=== PATIENT | female | born 1995 ===

== ENCOUNTER 2019-04-01 01:52 | Emergency (ER) | payer OTHER ==
--- OUTSIDE RECORDS SUMMARY | 2019-04-01 02:02 | XMS REPORT | Continuity of Care Document ---
:1995 External Reference #:[id number] Author Name Bartolo Conley DO Address [address] [place] [address] Care Team Providers Name Role Phone Dakota Cerda MD - Family Medicine Care Team Information Load Out Person Problems Description No Information Available Social History Type Date Description Comments Sex Unknown Tobacco Use Start: Unknown Patient has never smoked Smoking Status Reviewed: 01/27/19 Patient has never smoked Allergies, Adverse Reactions, Alerts Description No Known Drug Allergies Medications Active Medications SIG Qnty Indications Ordering Provider Date Nexium 1 by mouth every 30caps Dakota Cerda MD 40mg Capsules DR kari Xolair 2ml monthly Unknown 150mg/ml Soln Prefill Syringe History Medications Dexilant 1 by mouth 30caps R10.12 Bartolo Conley DO 01/27/2019 - 60mg every day 03/05/2019 Capsules Ranitidine HCL 1 by mouth once 30tabs Dakota Cerda MD 12/23/2018 - 150mg a day 03/05/2019 Tablets Immunizations Description No Information Available Vital Signs Date Vital Result Comment 01/27/2019 8:49am Height 65 inches 5'5" Weight 138.00 lb BP Systolic 118 mmHg BP Diastolic 73 mmHg Heart Rate 60 /min BMI (Body Mass Index) 23.0 kg/m2 Results Test Acquired Date Facility Test Result H/L Range Note Laboratory test 02/20/2019 [facility] Surgical SEE RESULT 1 finding Pathology BELOW Laboratory test 02/20/2019 [facility] Clotest SEE RESULT 2 finding BELOW Lab Results 12/23/2018 N2N/CCD Import CRP High 0.31 mg/L 3 Sensitivity Lab Results 12/23/2018 N2N/CCD Import Troponin-I/TnI <0.05 ng/mL 0-0.64 D Dimer Quant (Fma) <100 ng/mL 0.0-400 Lab Results 12/23/2018 N2N/CCD Import TSH 2.38 mIU/L 0.50-6.00 Comprehensive Metabolic 12/23/2018 N2N/CCD Import Sodium 134 mEq/L 134- 149 Prof Potassium 4.0 mEq/L 3.6-5.5 Chloride 98 mEq/L 94-112 Carbon Dioxide 28 mEq/L 21-32 Glucose 89 mg/dL 70-105 BUN 11 mg/dL 6-26 Creatinine 0.7 mg/dL 0.6-1.4 BUN/Creat Ratio 15.7 CALC 8.0-36.0 Calcium 9.4 mg/dL 8.6-10.2 Total Protein 7.3 g/dL 6.4-8.3 Albumin 4.9 g/dL 3.8-5.5 Globulin 2.4 g/dL 2.0-4.8 A/G Ratio 2.0 CALC 0.6-2.3 Alk. Phosphatase 43 U/L 30-110 Alt (SGPT) 14 U/L 7-35 Ast (Sgot) 17 U/L 5-34 Total Bilirubin 0.4 mg/dL 0.2-1.3 GFR Non- >60 ml/min/1.73m^ GFR >60 ml/min/1.73m^ Lab Results 12/23/2018 N2N/CCD Import CK 44 U/L 26-140 WBC 8.8 10^3/uL 4.0-10.0 RBC 4.28 10^6/uL 3.93-6.00 HGB 12.9 g/dL 12.0-17.0 HCT 39 % 35-50 MCV 91.6 fL 80.0-95.0 MCH 30.1 pg 25.6-32.2 MCHC 32.9 g/dL 32.2-36.0 RDW-CV 12.8 % 11.6-14.4 PLT 214 10^3/uL 163-400 MPV 10.4 fL 9.4-12.4 Tania# 4.64 10^3/uL 1.56-6.13 Lymph# 3.25 10^3/uL 1.18-3.74 Blanco# 0.80 10^3/uL 0.24-0.82 Eos # 0.1 10^3/uL 0.0-0.5 Baso # 0.02 10^3/uL 0.01-0.08 Tania% 52.8 % 34.0-70.0 Lymph % 37.0 % 20.0-52.0 Blanco% 9.1 % 5.0-12.0 Eos% 0.7 % 0.7-7.0 Baso% 0.2 % 0.1-1.2 Lab Results 12/23/2018 N2N/CCD Import WBC 8.8 10^3/uL 4.0-10.0 RBC 4.28 10^6/uL 3.93-6.00 HGB 12.9 g/dL 12.0-17.0 HCT 39 % 35-50 MCV 91.6 fL 80.0-95.0 MCH 30.1 pg 25.6-32.2 MCHC 32.9 g/dL 32.2-36.0 RDW-CV 12.8 % 11.6-14.4 PLT 214 10^3/uL 163-400 MPV 10.4 fL 9.4-12.4 Tania# 4.64 10^3/uL 1.56-6.13 Lymph# 3.25 10^3/uL 1.18-3.74 Blanco# 0.80 10^3/uL 0.24-0.82 Eos # 0.1 10^3/uL 0.0-0.5 Baso # 0.02 10^3/uL 0.01-0.08 Tania% 52.8 % 34.0-70.0 Lymph % 37.0 % 20.0-52.0 Blanco% 9.1 % 5.0-12.0 Eos% 0.7 % 0.7-7.0 Baso% 0.2 % 0.1-1.2 1 SEE RESULT BELOW Name: REGINA MCARTHUR : [address]: Bartolo Conlye DO Acct: [id number] Unit: [id number] AGE: 24 Location: ENDO Re02/20/19 SEX: F Status: REG REF SPEC: [id number] NAYLA: 02/20/19 [facility] DR: Bartolo Conley DO REQ: [id number] RECD: 02/20/19 STATUS: MELVIN LOREDO DR: Dakota Cerda MD _ ORDERED: LEVEL 4/2 FINAL DIAGNOSIS 1. Small bowel, biopsy: -- Benign small intestinal mucosa with no significant pathologic abnormalities. -- No evidence of villous blunting or increased intraepithelial lymphocytes. 2. Esophagus, distal, biopsy: -- Benign squamous and columnar-type mucosa with chronic inflammation. -- Intestinal metaplasia is absent. -- Dysplasia is absent. -- No evidence of eosinophilic esophagitis. PRE-OPERATIVE DIAGNOSIS Rule out celiac POST-OPERATIVE DIAGNOSIS EGD: esophagus - reflux approximately 1 cm biopsy; 2 cm hiatal hernia; gastric - normal biopsy; duodenum - normal; biopsy GROSS DESCRIPTION 1. The specimen is received in formalin labeled, Biopsy Small Bowel, and consists of a 0.5 x 0.3 x 0.1 cm aggregate of perez-yellow irregular soft tissue fragments which is submitted entirely in one cassette. CONTINUED ON NEXT PAGE DEPARTMENT OF PATHOLOGY, [address] [place] [address] Ganesh Vo M.D. Director [facility] # [id number] 2. The specimen is received in formalin labeled, Biopsy Distal Esophagus, and consists of two perez irregular soft tissue fragments averaging 0.3 x 0.2 by up to 0.2 cm which are submitted entirely in one cassette. Signed by and Reported on: Dinorah Jefferson MD 02/21/19 1235 END OF REPORT DEPARTMENT OF PATHOLOGY, [address] [place] [address] Ganesh Vo M.D. Director [facility] # [id number] SEE RESULT BELOW Name: REGINA MCARTHUR : [address]: Bartolo Conley DO Acct: [id number] Unit: [id number] AGE: 24 Location: ENDO Re02/20/19 SEX: F Status: REG REF SPEC: [id number] NAYLA: 02/20/19-1110 [facility] DR: Bartolo Conley DO REQ: [id number] RECD: 02/20/196117 STATUS: MELVIN LOREDO DR: Dakota Cerda MD _ ORDERED: LEVEL 4/2 FINAL DIAGNOSIS 1. Small bowel, biopsy: -- Benign small intestinal mucosa with no significant pathologic abnormalities. -- No evidence of villous blunting or increased intraepithelial lymphocytes. 2. Esophagus, distal, biopsy: -- Benign squamous and columnar-type mucosa with chronic inflammation. -- Intestinal metaplasia is absent. -- Dysplasia is absent. -- No evidence of eosinophilic esophagitis. PRE-OPERATIVE DIAGNOSIS Rule out celiac POST-OPERATIVE DIAGNOSIS EGD: esophagus - reflux approximately 1 cm biopsy; 2 cm hiatal hernia; gastric - normal biopsy; duodenum - normal; biopsy GROSS DESCRIPTION 1. The specimen is received in formalin labeled, Biopsy Small Bowel, and consists of a 0.5 x 0.3 x 0.1 cm aggregate of perez-yellow irregular soft tissue fragments which is submitted entirely in one cassette. CONTINUED ON NEXT PAGE DEPARTMENT OF PATHOLOGY, [facility] [employer] [place] [id number] Ganesh Vo M.D. Director [facility] # [id number] 2. The specimen is received in formalin labeled, Biopsy Distal Esophagus, and consists of two perez irregular soft tissue fragments averaging 0.3 x 0.2 by up to 0.2 cm which are submitted entirely in one cassette. Signed by and Reported on: Dinorah Jefferson MD 02/21/19 1235 END OF REPORT DEPARTMENT OF PATHOLOGY, [facility] [employer] [place], [place] [address] Ganesh Vo M.D. Director [facility] # [id number] SEE RESULT BELOW Name: REGINA MCARTHUR : [address]: Bartolo Conley DO Acct: [id number] Unit: [id number] AGE: 24 Location: ENDO Re/17/19 SEX: F Status: REG REF SPEC: [id number] NAYLA: 02/20/19 [facility] DR: Bartolo Conley DO REQ: [id number] RECD: 02/20/19 STATUS: MELVIN LOREDO DR: Dakota Cerda MD _ ORDERED: LEVEL 4/2 FINAL DIAGNOSIS 1. Small bowel, biopsy: -- Benign small intestinal mucosa with no significant pathologic abnormalities. -- No evidence of villous blunting or increased intraepithelial lymphocytes. 2. Esophagus, distal, biopsy: -- Benign squamous and columnar-type mucosa with chronic inflammation. -- Intestinal metaplasia is absent. -- Dysplasia is absent. -- No evidence of eosinophilic esophagitis. PRE-OPERATIVE DIAGNOSIS Rule out celiac POST-OPERATIVE DIAGNOSIS EGD: esophagus - reflux approximately 1 cm biopsy; 2 cm hiatal hernia; gastric - normal biopsy; duodenum - normal; biopsy GROSS DESCRIPTION 1. The specimen is received in formalin labeled, Biopsy Small Bowel, and consists of a 0.5 x 0.3 x 0.1 cm aggregate of perez-yellow irregular soft tissue fragments which is submitted entirely in one cassette. CONTINUED ON NEXT PAGE DEPARTMENT OF PATHOLOGY, [address] [place] [address] Ganesh Vo M.D. Director [facility] # [id number] 2. The specimen is received in formalin labeled, Biopsy Distal Esophagus, and consists of two perez irregular soft tissue fragments averaging 0.3 x 0.2 by up to 0.2 cm which are submitted entirely in one cassette. Signed by and Reported on: Dinorah Jefferson MD 02/21/19 1235 END OF REPORT DEPARTMENT OF PATHOLOGY, [address] [place] [address] Ganesh Vo M.D. Director [facility] # [id number] 2 SEE RESULT BELOW Name: REGINA MCARTHUR : [address]: Bartolo Conley DO Acct: [id number] Unit: [id number] AGE: 24 Location: ENDO Re02/20/19 SEX: F Status: REG REF SPEC: [id number] NAYLA: 02/20/[address]: Bartolo Conley DO REQ: [id number] RECD: 02/20/19 STATUS: CHENCHO LOREDO DR: Halle Primary Care Phys,NOPCP _ SOURCE: GAS ANTRUM SPDESC: ORDERED: Clotest Procedure Result Reported Site Clotest Final 02/21/19- 0801 ML Clotest Negative * ML - Main Lab . END OF REPORT DEPARTMENT OF PATHOLOGY, [address] [place] [address] Ganesh Vo M.D. Director [facility] # [id number] 1 sst Procedures Description No Information Available Medical Devices Description No Information Available Encounters Description No Information Available Assessments Date Code Description Provider 01/27/2019 R10.12 Left upper quadrant pain Bartolo Conley DO 01/27/2019 K59.00 Constipation, unspecified Bartolo Conley DO 01/27/2019 Z87.11 Personal history of peptic ulcer disease Bartolo Conley DO Plan of Treatment Future Appointment(s):04/08/2019 2:30 pm - Bartolo Conley DO at [facility]01/27/2019 - Bartolo Conley DOR10.12 Left upper quadrant painNew Medication:Dexilant 60 mg - 1 by mouth every dayK59.00 Constipation, hcefrnxsjhpY53.11 Personal history of peptic ulcer disease Functional Status Description No Information Available Mental Status Description No Information Available Referrals Description No Information Available
--- OUTSIDE RECORDS SUMMARY | 2019-04-01 02:02 | XMS REPORT | Continuity of Care Document ---
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 Available Social History Type Date Description Comments Sex Unknown Tobacco Use Start: Unknown Patient has never smoked Smoking Status Reviewed: 01/27/19 Patient has never smoked Allergies, Adverse Reactions, Alerts Description No Known Drug Allergies Medications Active Medications SIG Qnty Indications Ordering Provider Date Dexilant 1 by mouth every 30caps R10.12 Bartolo Conley DO 01/27/[address] Ranitidine HCL 1 by mouth once a 30tabs Dakota Cerda MD 12/23/2018 150mg day Tablets Nexium 1 by mouth every 30caps Dakota Cerda MD 40mg Capsules DR day Xolair 2ml monthly Unknown 150mg/ml Soln Prefill Syringe Immunizations Description No Information Available Vital Signs Date Vital Result Comment 01/27/2019 8:49am Height 65 inches 5'5" Weight 138.00 lb BP Systolic 118 mmHg BP Diastolic 73 mmHg Heart Rate 60 /min BMI (Body Mass Index) 23.0 kg/m2 Results Test Date Facility Test Result H/L Range Note Laboratory test 02/20/2019 [facility] Surgical SEE RESULT 1 finding Pathology BELOW Laboratory test 02/20/2019 [facility] Clotest SEE RESULT 2 finding BELOW Lab [...] 4.64 10^3/uL 1.56-6.13 Lymph# 3.25 10^3/uL 1.18-3.74 [place]# 0.80 10^3/uL 0.24-0.82 Eos # 0.1 10^3/uL 0.0-0.5 Baso # 0.02 10^3/uL 0.01-0.08 Tania% 52.8 % 34.0-70.0 Lymph % 37.0 % 20.0-52.0 [place]% 9.1 % 5.0-12.0 Eos% 0.7 % 0.7-7.0 [...] 4.64 10^3/uL 1.56-6.13 Lymph# 3.25 10^3/uL 1.18-3.74 [place]# 0.80 10^3/uL 0.24-0.82 Eos # 0.1 10^3/uL 0.0-0.5 Baso # 0.02 10^3/uL 0.01-0.08 Tania% 52.8 % 34.0-70.0 Lymph % 37.0 % 20.0-52.0 [place]% 9.1 % 5.0-12.0 Eos% 0.7 % 0.7-7.0 Baso% 0.2 % 0.1-1.2 1 SEE RESULT BELOW Name: GENARO TOMLINSONREGINA : [address]: Bartolo Conley DO Acct: [id number] Unit: [id number] AGE: 24 Location: ENDO Re02/20/19 SEX: F Status: REG REF SPEC: [id number] NAYLA: 02/20/[address] [facility] [address]: Bartolo Conley DO REQ: [id number] RECD: 02/20/199825 STATUS: MELVIN LOREDO DR: Dakota Cerda MD [...] CONTINUED ON NEXT PAGE DEPARTMENT OF PATHOLOGY, [address] [place] [address] Ganesh Vo M.D. Director [facility] # [id number] 2. The specimen is received in formalin labeled, Biopsy Distal Esophagus, and consists of two perez irregular soft tissue fragments averaging 0.3 x 0.2 by up to 0.2 cm which are submitted entirely in one cassette. Signed by and Reported on: Dinorah Jefferson MD 02/21/19 0553 END OF REPORT DEPARTMENT OF PATHOLOGY, [address] [place] [address] Ganesh Vo M.D. Director [facility] # [id number] SEE RESULT BELOW Name: GENARO TOMLINSONREGINA : [address]: Bartolo Conley DO Acct: [id number] Unit: [id number] AGE: 24 Location: ENDO Re02/20/19 SEX: F Status: REG REF SPEC: [id number] NAYLA: 02/20/19-[address] [facility] [address]: Bartolo Conley DO REQ: [id number] RECD: 02/20/193700 STATUS: MELVIN LOREDO DR: Dakota Cerda MD [...] CONTINUED ON NEXT PAGE DEPARTMENT OF PATHOLOGY, [facility] [employer] [place] [address] Ganesh Vo M.D. Director [facility] # [id number] 2. The specimen is received in formalin labeled, Biopsy Distal Esophagus, and consists of two perez irregular soft tissue fragments averaging 0.3 x 0.2 by up to 0.2 cm which are submitted entirely in one cassette. Signed by and Reported on: Dinorah Jefferson MD 02/21/19 1235 END OF REPORT DEPARTMENT OF PATHOLOGY, [facility] [employer] [place], [place] [address] Ganesh Vo M.D. Director [facility] # [id number] SEE RESULT BELOW Name: REGINA MCARTHUR : [address]: Bartolo Conley DO Acct: [id number] Unit: [id number] AGE: 24 Location: ENDO Re02/20/19 SEX: F Status: REG REF SPEC: [id number] NAYLA: 02/20/[address] [facility] [address]: Bartolo Conley DO REQ: [id number] RECD: 02/20/19 STATUS: MELVIN LOREDO DR: Dakota [...] CONTINUED ON NEXT PAGE DEPARTMENT OF PATHOLOGY, [address] [place] [address] Ganesh Vo M.D. Director [facility] # [id number] 2. The specimen is received in formalin labeled, Biopsy Distal Esophagus, and consists of two perez irregular soft tissue fragments averaging 0.3 x 0.2 by up to 0.2 cm which are submitted entirely in one cassette. Signed by and Reported on: Dinorah Jefferson MD 02/21/19 1235 END OF REPORT DEPARTMENT OF PATHOLOGY, [address] [place] [address] Ganesh Vo M.D. Director [facility] # [id number] 2 SEE RESULT BELOW Name: GENARO TOMLINSONREGINA : [address]: Bartolo Conley DO Acct: [id number] Unit: [id number] AGE: 24 Location: ENDO Re02/20/19 SEX: F Status: REG REF SPEC: [id number] NAYLA: 02/20/[address] [facility] [address]: Bartolo Conley DO REQ: [id number] RECD: 02/20/19 STATUS: CHENCHO LOREDO DR: Halle Primary Care Phys,NOPCP _ SOURCE: GAS ANTRUM SPDESC: ORDERED: Clotest Procedure Result Reported Site Clotest Final 02/21/19- 01 ML Clotest Negative * ML - Main Lab . END OF REPORT DEPARTMENT OF PATHOLOGY, [address] [place] [address] Ganesh Vo M.D. Director [facility] # [id number] 3 [id number] 1 sst Procedures Description No Information Available Medical Devices Description No Information Available Encounters Description No Information Available Assessments Date Code Description Provider 01/27/2019 R10.12 Left upper quadrant pain Bartolo Conley, DO 01/27/2019 K59.00 Constipation, unspecified Bartolo Yael, DO 01/27/2019 Z87.11 Personal history of peptic ulcer disease Bartolo Conley DO Plan of Treatment 01/27/2019 - Bartolo Conley DOR10.12 Left upper quadrant painNew Medication: Dexilant 60 mg - 1 by mouth every dayK59.00 Constipation, jakpsvtugioO20.11 Personal history of peptic ulcer disease Functional Status Description No Information Available Mental Status Description No Information Available Referrals Description No Information Available
--- OUTSIDE RECORDS SUMMARY | 2019-04-01 02:02 | XMS REPORT | Continuity of Care Document ---
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 No Information Available Social History [...] Date Facility Test Result H/L Range Note Lab Results 12/23/2018 N2N/CCD Import CRP High 0.31 mg/L 1 Sensitivity Lab Results 12/23/2018 N2N/CCD Import Troponin-I/TnI [...] 4.64 10^3/uL 1.56-6.13 Lymph# 3.25 10^3/uL 1.18-3.74 Amelia# 0.80 10^3/uL 0.24-0.82 Eos # 0.1 10^3/uL 0.0-0.5 Baso # 0.02 10^3/uL 0.01-0.08 Tania% 52.8 % 34.0-70.0 Lymph % 37.0 % 20.0-52.0 Amelia% 9.1 % 5.0-12.0 Eos% 0.7 % 0.7-7.0 [...] 4.64 10^3/uL 1.56-6.13 Lymph# 3.25 10^3/uL 1.18-3.74 Amelia# 0.80 10^3/uL 0.24-0.82 Eos # 0.1 10^3/uL 0.0-0.5 Baso # 0.02 10^3/uL 0.01-0.08 Tania% 52.8 % 34.0-70.0 Lymph % 37.0 % 20.0-52.0 Amelia% 9.1 % 5.0-12.0 Eos% 0.7 % 0.7-7.0 Baso% 0.2 % 0.1-1.2 1 [id number] 1 sst Procedures Description No Information Available Medical Devices Description No Information Available Encounters Description No Information Available Assessments Date Code Description Provider 01/27/2019 R10.12 Left upper quadrant pain Bartolo Conley DO 01/27/2019 K59.00 Constipation, unspecified Bartolo Conley DO 01/27/2019 Z87.11 Personal history of peptic ulcer disease Bartolo Conley DO Plan of Treatment Future Appointment(s):02/20/2019 10:15 am - Bartolo [facility] DO at [facility]01/27/2019 - Bartolo Conley DOR10.12 Left upper quadrant painNew Medication:Dexilant 60 mg - 1 by mouth every dayK59.00 Constipation, azvlhbdxihyU53.11 Personal history of peptic ulcer disease Functional Status Description No Information Available Mental Status Description No Information Available Referrals Description No Information Available
--- NOTE | 2019-04-01 02:16 | ED ---
Abdominal Pain/Female - HPI Summary HPI Summary: Pt is a 24 y/o F presenting to the ED with a chief complaint of abdominal pain. She's been experiencing this pain since early this year, around July or August. In the summer, pt was starting to get treatment for some upper back/neck pain with opioids, which started to constipate her. She has been treated in [facility] where she is from, and when coming to [place], she saw Dr. Conley who did an endoscopy, did not find ulcers or gastritis, instead found a hiatal hernia and GERD. He recommended laxatives, which she has tried 3 of. Tonight, she presents d/t persistent pain. She has had some diarrhea, and reports frequency of urination. She denies dysuria, hematuria, or burning with urination. - History of Current Complaint Chief Complaint: EDAbdPain Stated Complaint: ABD PAIN PER PT Time Seen by Provider: 04/01/19 02:03 Hx Obtained From: Patient Onset/Duration: Gradual Onset, Lasting Days, Still Present Timing: Days Severity Initially: Moderate Severity Currently: Severe Pain Intensity: 7 Pain Scale Used: 0-10 Numeric Location: Discrete At: LUQ Radiates: No Aggravating Factor(s): Nothing Alleviating Factor(s): Nothing Associated Signs and Symptoms: Positive: Back Pain, Urinary Symptoms - frequency. no burning, dysuria, hematuria, Diarrhea. Negative: Vomiting Allergies/Adverse Reactions: Allergies Allergy/AdvReac Type Severity Reaction Status Date / Time No Known Allergies Allergy Verified 04/01/19 01:53 PMH/Surg Hx/FS Hx/Imm Hx Previously Healthy: Yes Endocrine/Hematology History: Denies: Hx Diabetes Cardiovascular History: Denies: Hx Hypertension GI History: Reports: Hx Gastroesophageal Reflux Disease Musculoskeletal History: Reports: Hx Back Problems - Surgical History Surgery Procedure, Year, and Place: appendectomy - Immunization History Date of Tetanus Vaccine: utd Date of Influenza Vaccine: unk Infectious Disease History: No Infectious Disease History: Denies: Traveled Outside the [place] in Last 30 Days - Family History Known Family History: Negative: Diabetes - Social History Alcohol Use: Occasionally Hx Substance Use: No Substance Use Type: Reports: None Hx Tobacco Use: No Smoking Status (MU): Never Smoked Tobacco Review of Systems Positive: Abdominal Pain, Diarrhea. Negative: Vomiting Positive: frequency. Negative: burning, dysuria, hematuria All Other Systems Reviewed And Are Negative: Yes Physical Exam Triage Information Reviewed: Yes Vital Signs On Initial Exam: Initial Vitals Temp Pulse Resp BP Pulse Ox 98.5 F 73 16 129/83 99 04/01/19 01:53 04/01/19 01:53 04/01/19 01:53 04/01/19 01:53 04/01/19 01:53 Vital Signs Reviewed: Yes Procedures - Sedation Patient Received Moderate/Deep Sedation with Procedure: No Diagnostics - Vital Signs Vital Signs Temp Pulse Resp BP Pulse Ox 04/01/19 01:53 98.5 F 73 16 129/83 99 - Laboratory Result Diagrams: 04/01/19 02:41 04/01/19 02:41 Lab Statement: Any lab studies that have been ordered have been reviewed, and results considered in the medical decision making process. - CT CT a/p CT Interpretation Completed By: Radiologist Summary of CT Findings: 1. Right ovarian cyst measuring 3.0 x 2.0 x 2.2 cm[address] 2[address] Otherwise negative CT abdomen/pelvis. ED physician has reviewed this report. Abdominal Pain Fem Course/Dx - Course Course Of Treatment: Pt is a 24 y/o F presenting to the ED with a chief complaint of abdominal pain. She's been experiencing this pain since early this year, around July or August. In the summer, pt was starting to get treatment for some upper back/neck pain with opioids, which started to constipate her. Dr. Conley recommended laxatives, which she has tried 3 of. Tonight, she presents d/t persistent pain. She has had some diarrhea, and reports frequency of urination. She denies dysuria, hematuria, or burning with urination. Pt's physical exam is nml. CT a/p shows: 1. Right ovarian cyst measuring 3.0 x 2.0 x 2.2 cm[address] 2[address] Otherwise negative CT abdomen/pelvis. Pt will be d/c'ed with dx of chronic abd pain. Pt is stable and agreeable with this plan. - Diagnoses Provider Diagnoses: Chronic abdominal pain Discharge ED - Sign-Out/Discharge Documenting (check all that apply): Patient Departure - Discharge Plan Condition: Good Disposition: HOME Patient Education Materials: Chronic Abdominal Pain (ED) Referrals: Bartolo Conley DO [Doctor of Osteopathy] - Additional Instructions: I am not sure what is causing this chronic abdominal pain, but your lab work and CT scan were unremarkable tonight. Contact Dr. Conley's office for further followup. Sometimes it takes trying several medications before getting symptoms under control. - Billing Disposition and Condition Condition: GOOD Disposition: Home - Attestation Statements Document Initiated by Meagan: Yes Documenting Scribe: Kusum lOivier Provider For Whom Meagan is Documenting (Include Credential): Adam Oliver MD. Scribe Attestation: I, Kusum Olivier, scribed for Adam Oliver MD. on 04/01/19 at 0538. Scribe Documentation Reviewed: Yes Provider Attestation: The documentation as recorded by the maxwelle, Kusum Olivier accurately reflects the service I personally performed and the decisions made by me, Adam Oliver MD. Status of Scribe Document: Viewed
[2019-04-01 03:03] LABS: ABS Basophils 0.1 10^3/ul (0-0.2); ABS Eosinophils 0.2 10^3/ul (0-0.6); ABS Lymphocytes 2.5 10^3/ul (1.0-4.8); ABS Monocytes 0.4 10^3/ul (0-0.8); ABS Neutrophils 2.1 10^3/ul (1.5-7.7); Eosinophil % 2.9 %; Hematocrit 34 % (35-47); Hemoglobin 11.2 g/dL (12.0-16.0); Lymphocyte % 47.9 %; Mean Corpuscular HGB Conc 33 g/dL (31-36); Mean Corpuscular Hemoglobin 28 pg (27-31); Mean Corpuscular Volume 86 fL (80-97); Mean Platelet Volume 8.4 fL (7.4-10.4); Nucleated Red Blood Cells % 0.1; Platelet Count 205 10^3/uL (150-450); Red Blood Count 3.98 10^6 /uL (3.70-4.87); Red Cell Distribution Width 14 % (10-15); White Blood Count 5.3 10^3/uL (3.5-10.8)
[2019-04-01 03:20] LABS: ALT 11 U/L (7-52); AST 15 U/L (13-39); Albumin/Globulin Ratio 1.5 (1-3); Alkaline Phosphatase 49 U/L (34-104); Anion Gap 5 mmol/L (2-11); BUN/Creatinine Ratio 28.8 (8-20); Blood Urea Nitrogen 21 mg/dL (6-24); C Reactive Protein 1.74 mg/L (<8.01); CO2 Carbon Dioxide 26 mmol/L (22-32); Calcium 9.5 mg/dL (8.6-10.3); Chloride 106 mmol/L (101-111); EGFR African American 118.5 (>60); EGFR Non-African American 97.9 (>60); Globulin 2.6 g/dL (2-4); Glucose 93 mg/dL (70-100); Potassium 3.5 mmol/L (3.5-5.0); Sodium 137 mmol/L (135-145); Total Protein 6.6 g/dL (6.4-8.9)
[2019-04-01 03:25] LABS: Urine Appearance Clear; Urine Bilirubin Negative (Negative); Urine Blood 3+ (Negative); Urine Color Straw; Urine Glucose Negative (Negative); Urine Ketones Negative (Negative); Urine Nitrite Negative (Negative); Urine Protein Negative (Negative); Urine Specific Gravity 1.006 (1.010-1.030); Urine Urobilinogen Negative (Negative)
[2019-04-01] MEDS ORDERED: Iohexol 300* (CONTRAST) 10 ML SDV IV ONE (03:25)
[2019-04-01 03:26] LABS: HCG Pregnancy < 0.60 mIU/mL
[2019-04-01 03:29] LABS: Urine Bacteria Absent (Absent); Urine Red Blood Cell Trace(0-2/hpf) (Absent); Urine Squamous Epithelial Cell Present (Absent); Urine White Blood Cell Trace(0-5/hpf) (Absent)
[2019-04-01] MEDS ORDERED: Simethicone TAB* 80 MG TAB.CHEW PO ONE (04:37)
[2019-04-01 04:52] VITALS: BP 103/56
== END 2019-04-01 04:50 | disposition home or self-care (01) ==
LOC: ED 01:52
DX: R10.9 Unspecified abdominal pain (principal); G89.29 Other chronic pain; K21.9 Gastro-esophageal reflux disease without esophagitis; Z90.89 Acquired absence of other organs; N83.201 Unspecified ovarian cyst, right side
CPT/HCPCS: 36415; 74177; 80053; 81003; 81015; 83690; 84702; 85025; 86140; 87086; 99282; A9270-GY; Q9967